=== PATIENT | male | born 1970 | race Caucasian/White ===

== ENCOUNTER 2021-05-14 21:59 | Emergency (ER) | payer OTHER ==
[2021-05-14 22:36] LABS: HEMOGLOBIN 16.4 gm/dl (14.0-17.5); RED BLOOD COUNT 5.34 M/UL (4.20-5.50); WHITE BLOOD COUNT 10.8 K/UL (4.5-11.0)
[2021-05-14 22:57] LABS: BUN/CREATININE RATIO 11 (0-10)
== END 2021-05-14 23:50 | disposition home or self-care (01) ==
LOC: ER1 21:59
PROVIDERS: Family Medicine
DX: F10.129 Alcohol abuse with intoxication, unspecified (principal); F17.200 Nicotine dependence, unspecified, uncomplicated; Y90.8 Blood alcohol level of 240 mg/100 ml or more
CPT/HCPCS: 80053; 80307; 81001; 85025; 99284; G0480